=== PATIENT | female | born 1990 | race Caucasian/White ===

== ENCOUNTER 2016-04-27 19:10 | Emergency (ER) | payer OTHER ==
[~2016-04-27] VITALS: Ht 170.2 cm; Wt 75.0 kg
[2016-04-27 19:25] VITALS: BP 136/84; PULSE 105; RESP 16; O2SAT 99
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
[2016-04-27] MEDS ORDERED: Lidocaine 1% 50 mL Inj NERVEBLOCK ONE (20:00)
[2016-04-27] MEDS ORDERED: CLIN-78 PO (21:32)
== END 2016-04-27 22:05 | disposition home or self-care (01) ==
LOC: SED 19:10
DX: L03.012 Cellulitis of left finger (principal); L02.31 Cutaneous abscess of buttock; R68.83 Chills (without fever); Z86.19 Personal history of other infectious and parasitic diseases; Z88.8 Allergy status to other drugs, medicaments and biological substances